=== PATIENT | male | born 1980 | race Caucasian/White ===

== ENCOUNTER 2019-06-10 16:27 | Emergency (ER) | payer OTHER ==
[2019-06-10 16:44] VITALS: BP 129/85
--- NOTE | 2019-06-10 18:10 | UC ---
Hand/Wrist HPI - HPI Summary HPI Summary: PATIENT HAS HAD LEFT FOREARM AND HAND TINGLING FOR ABOUT 2 HOURS. ALL FINGERS AND PALM BUT WORSE IN 4TH AND 5TH FINGERS. STATES HE HAS BEEN SITTING AT HIS COMPUTER A LOT OVER THE PAST FEW DAYS WORKING ON A CERTIFICATION COURSE. 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 HE IS HEALTHY WITH NO SIGNIFICANT PAST MEDICAL HISTORY. NONSMOKER. NO PREVIOUS LEFT ARM INJURIES. HE DENIES ANY WEAKNESS OR PAIN. NO CHEST PAIN, SHORTNESS OF BREATH, NAUSEA, DIZZINESS, FAINTNESS. - History Of Current Complaint Chief Complaint: UCUpperExtremity Stated Complaint: LEFT HAND, ARM NUMBESS Time Seen by Provider: 06/10/19 17:32 Hx Obtained From: Patient Onset/Duration: Sudden Onset, Lasting Hours, Still Present Severity Initially: Mild Severity Currently: Mild Pain Intensity: 0 Pain Scale Used: 0-10 Numeric Associated Signs And Symptoms: Positive: Numbness/Tingling Related History: Dominant Hand Right - Allergies/Home Medications Allergies/Adverse Reactions: Allergies Allergy/AdvReac Type Severity Reaction Status Date / Time No Known Allergies Allergy Verified 06/10/19 16:44 PMH/Surg Hx/FS Hx/Imm Hx Previously Healthy: Yes - Surgical History Surgical History: Yes Surgery Procedure, Year, and Place: inguinal hernia repair - Family History Known Family History: Negative: Cardiac Disease, Hypertension, Diabetes - Social History Alcohol Use: None Substance Use Type: None Smoking Status (MU): Never Smoked Tobacco Review of Systems All Other Systems Reviewed And Are Negative: Yes Constitutional: Positive: Negative Skin: Positive: Negative Respiratory: Positive: Negative Cardiovascular: Positive: Negative Gastrointestinal: Positive: Negative Neurological: Positive: Paresthesia Physical Exam Triage Information Reviewed: Yes Appearance: Well-Appearing, No Pain Distress, Well-Nourished Vital Signs: Initial Vital Signs Temp 98.5 F 06/10/19 16:38 Pulse 60 06/10/19 16:38 Resp 16 06/10/19 16:38 BP 129/85 06/10/19 16:38 Pulse Ox 100 06/10/19 16:38 Vital Signs Reviewed: Yes Eyes: Positive: Conjunctiva Clear ENT: Positive: Hearing grossly normal Neck: Positive: Supple Respiratory: Positive: No respiratory distress, No accessory muscle use Cardiovascular: Positive: Pulses Normal Abdomen Description: Positive: Soft Musculoskeletal: Positive: ROM Intact Neurological: Positive: Alert, Muscle Tone Normal, Other: - POSITIVE TINELS AND PHALENS OVER MEDIAN NERVE AND ULNAR NERVE LEFT ARM Psychological: Positive: Age Appropriate Behavior Skin: Negative: Rashes Hand/Wrist Course/Dx - Course Course Of Treatment: BASED ON PRESENTATION AND SYMPTOMS I HAVE A VERY LOW SUSPICION FOR ANY CARDIAC ETIOLOGY. DISCUSSED WITH PATIENT THAT I AM UNABLE TO PERFORM ANY KIND OF CARDIAC EVALUATION HERE IN THE URGENT CARE. HE VERBALIZES UNDERSTANDING AND AGREES THIS IS UNLIKELY. PATIENTS PRESENTATION MORE CONSISTENT WITH NERVE PALSIES. SUSPECT CUBITAL TUNNEL SYNDROME AND MILD CARPAL TUNNEL SYNDROME ON THE LEFT. COCK-UP SPLINT APPLIED BY RN. ADVISED TO KEEP HIS LEFT ELBOW PROTECTED AND AVOID OVER FLEXION. FOLLOW-UP WITH NEUROLOGY IF SYMPTOMS ARE NOT IMPROVING. - Differential Dx/Diagnosis Provider Diagnosis: Cubital tunnel syndrome on left, Carpal tunnel syndrome of left wrist Discharge ED - Sign-Out/Discharge Documenting (check all that apply): Patient Departure All imaging exams completed and their final reports reviewed: No Studies - Discharge Plan Condition: Stable Disposition: HOME Prescriptions: predniSONE 20 mg TAB [Deltasone 20 MG TAB*] 40 mg PO DAILY #10 tab Patient Education Materials: Cubital Tunnel Syndrome (ED), Paresthesia (ED) Referrals: Theo Paz MD [Medical Doctor] - 2 Weeks Maurizio Forrest MD [Primary Care Provider] - If Needed Additional Instructions: YOUR SYMPTOMS ARE MOST CONSISTENT WITH NERVE PALSIES SPECIFICALLY THE ULNAR NERVE (CUBITAL TUNNEL SYNDROME) AND THE MEDIAN NERVE (CARPAL TUNNEL SYNDROME). TRY TO AVOID OVERUSE OF YOUR WRIST AND ELBOW TO PREVENT FURTHER INFLAMMATION AND IRRITATION OF THESE NERVES. DO NOT REST YOUR ELBOWS ON ANYTHING FIRM. TRY TO KEEP YOUR ARM RELATIVELY STRAIGHT, AVOIDING OVER FLEXION FOR PROLONGED PERIODS OF TIME. TAKE IBUPROFEN TO HELP WITH THE INFLAMMATION. WILL ALSO TRY A SHORT BURST OF PREDNISONE. CARPAL TUNNEL SYNDROME: Your examination suggests carpal tunnel syndrome. This syndrome is due to pressure on a nerve in the wrist. The pressure may be due to an old injury, hard work using the wrist, or arthritis in the wrist. Typical symptoms are tingling, numbness, and pain in the palm, thumb, index and middle fingers, and one side of the ring finger. This problem often has to be repaired surgically. If the physician feels that your problem is of a more chronic nature, you will be referred to a specialist for further care. Sometimes a splint, ice packs, and antiinflammatory medication make the syndrome go away -- if symptoms have just started. You should call the doctor if pain increases, if you develop difficulty using the thumb or fingers, or if major swelling occurs. WEAR THE SPLINT AT NIGHT AND DURING THE DAY ABLE TO HELP REDUCE THE RISK OF FURTHER IRRITATION OF THE NERVE. IF YOUR SYMPTOMS ARE NOT IMPROVING FOLLOW-UP WITH NEUROLOGY FOR FURTHER EVALUATION. VERY LOW SUSPICION FOR ANY UNDERLYING CARDIAC ETIOLOGY GIVEN YOUR PRESENTATION AND LACK OF RISK FACTORS HOWEVER BE VIGILANT AND GO TO THE ER WITHOUT FAIL IF YOU DEVELOP CHEST PAIN, SHORTNESS OF BREATH, NAUSEA, DIZZINESS, FAINTNESS OR ANY OTHER CONCERNING SYMPTOMS. - Billing Disposition and Condition Condition: STABLE Disposition: Home
== END 2019-06-10 18:15 | disposition home or self-care (01) ==
LOC: UCEAST 16:27
DX: G56.22 Lesion of ulnar nerve, left upper limb (principal); G56.02 Carpal tunnel syndrome, left upper limb
CPT/HCPCS: 99202; G0463